=== PATIENT | male | born 1980 | race Two or more races ===

== ENCOUNTER 2020-12-18 20:12 | Emergency (ER) | payer MEDICAID ==
[~2020-12-18] VITALS: Ht 185.4 cm; Wt 108.9 kg
[2020-12-18 21:49] VITALS: BP 121/80
== END 2020-12-19 03:35 | disposition left against medical advice (07) ==
LOC: ER 20:12
DX: S30.860A Insect bite (nonvenomous) of lower back and pelvis, initial encounter (principal); Z53.21 Procedure and treatment not carried out due to patient leaving prior to being seen by health care provider; W57.XXXA Bitten or stung by nonvenomous insect and other nonvenomous arthropods, initial encounter; Y93.89 Activity, other specified; Y92.89 Other specified places as the place of occurrence of the external cause; Y99.8 Other external cause status

== ENCOUNTER 2022-02-11 02:00 | Emergency (ER) | payer MEDICAID ==
[~2022-02-11] VITALS: Ht 182.9 cm; Wt 104.5 kg
[2022-02-11 02:56] LABS: Urine Bacteria FEW /hpf (None Seen); Urine Blood Negative /uL (Negative); Urine Mucus FEW (None Seen); Urine Specific Gravity 1.027 (1.001-1.035); Urine WBC 24 /hpf (0 - 3)
[2022-02-11 05:47] VITALS: BP 131/85
== END 2022-02-11 07:04 | disposition left against medical advice (07) ==
LOC: ER 02:02
DX: N50.811 Right testicular pain (principal); Z53.21 Procedure and treatment not carried out due to patient leaving prior to being seen by health care provider
CPT/HCPCS: 81001